=== PATIENT | female | born 1990 | race Caucasian/White ===

== ENCOUNTER 2016-09-20 08:34 | Emergency (ER) | payer MEDICAID ==
[~2016-09-20] VITALS: Ht 162.6 cm; Wt 83.6 kg
[~2016-09-20 08:34] MED LIST: BACTRIM DS 8001 TAB PO; EXCEDRIN 250 MG1 TAB PO; EXCEDRIN TENSION HA; FLEXERIL10 MG PO; NO HOME MEDICATIONS; NORCO 325 MG-51 TAB PO; VITAMINS; [UNRECOGNIZED DRUG - REMARK]
[2016-09-20 08:37] VITALS: BP 129/77; PULSE 93; TEMP 97.8
[2016-09-20] MEDS ORDERED: PRENATAL PO (08:42)
== END 2016-09-20 09:07 | disposition home or self-care (01) ==
LOC: COL.ER 08:34
DX: O99.89 Other specified diseases and conditions complicating pregnancy, childbirth and the puerperium (principal); R07.89 Other chest pain; Z3A.13 13 weeks gestation of pregnancy

== ENCOUNTER 2016-10-14 19:08 | Emergency (ER) | payer MEDICAID ==
[~2016-10-14] VITALS: Ht 162.6 cm; Wt 84.1 kg
[~2016-10-14 19:08] MED LIST changes: +PRENATAL PO
[2016-10-14 19:11] VITALS: TEMP 98.7
[2016-10-14] MEDS ORDERED: UNISOM25 MG PO (19:15)
[2016-10-14] MEDS ORDERED: AMOXICILLIN 50500 MG PO (19:15)
[2016-10-14 20:09] LABS: PH 7 (5-8); URINE APPEARANCE Clear; URINE BACTERIA Moderate /hpf; URINE BILIRUBIN Negative (NEGATIVE); URINE BLOOD Negative (NEGATIVE); URINE COLOR Yellow; URINE GLUCOSE Negative (NEGATIVE); URINE KETONE Negative (NEGATIVE); URINE RBC 0-2 /hpf; URINE UROBILINOGEN Negative (NEGATIVE); URINE WBC 0-2 /hpf
[2016-10-14 21:04] VITALS: BP 126/87; PULSE 89
== END 2016-10-14 21:05 | disposition home or self-care (01) ==
LOC: COL.ER 19:08
PROVIDERS: Nurse Practitioner
DX: O99.511 Diseases of the respiratory system complicating pregnancy, first trimester (principal); Z3A.01 Less than 8 weeks gestation of pregnancy; J06.9 Acute upper respiratory infection, unspecified; O99.89 Other specified diseases and conditions complicating pregnancy, childbirth and the puerperium; R10.2 Pelvic and perineal pain

== ENCOUNTER 2017-03-23 09:53 | Outpatient (CLI) | payer MEDICAID ==
[~2017-03-23] VITALS: Ht 162.6 cm; Wt 95.9 kg
[~2017-03-23 09:53] MED LIST changes: +AMOXICILLIN 50500 MG PO; +UNISOM25 MG PO
[2017-03-23 10:02] VITALS: BP 127/83; PULSE 66; TEMP 98.1
[2017-03-23] MEDS ORDERED: NATURAL IRON65 MG (10:07)
[2017-03-24] MEDS ORDERED: PERCOCET 325 MG1 TA2 PO (03:46)
[2017-03-24] MEDS ORDERED: MOTRIN 800800 MG/TAB PO (03:46)
== END 2017-03-23 11:15 | disposition home or self-care (01) ==
LOC: LDRO 09:53
DX: O42.92 Full-term premature rupture of membranes, unspecified as to length of time between rupture and onset of labor (principal); O62.9 Abnormality of forces of labor, unspecified; Z3A.39 39 weeks gestation of pregnancy

== ENCOUNTER 2017-03-24 01:50 | Inpatient (IN) | payer BC, MEDICAID ==
[2017-03-24] VITALS (53 sets, daily range): BP systolic 100–151; BP diastolic 51–90; PULSE 53–113; TEMP 97.6–99.6
[~2017-03-24] VITALS: Ht 162.6 cm; Wt 95.9 kg
[~2017-03-24 01:50] MED LIST changes: +NATURAL IRON65 MG
[2017-03-24 03:44] LABS: BASO % 0.1 % (0.0-2.0); EOS % 0.1 % (0-4.0); GRAN # 5.7 (1.4-6.5); GRAN % 82.2 % (42.2-75.2); LYMPH # 0.7 (1.2-3.4); LYMPH % 10.3 % (20.0-51.0); MEAN CELL VOLUME 83 fl (80.0-100.0); MEAN CORPUSCULAR HGB CONC 34 g/dl (33.0-37.0); MONO # 0.5 (0.1-0.6); MONO % 6.9 % (1.7-9.3); PLATELET COUNT 170 K/mm3 (130-400); RED BLOOD COUNT 3.95 M/mm3 (4.10-5.30); REDCELL DISTRIBUTION WIDTH-CV 14.7 % (11.5-14.5); WHITE BLOOD COUNT 6.9 K/mm3 (4.8-10.8)
[2017-03-24 03:45] LABS: HEMATOCRIT 32.7 % (37.0-47.0); HEMOGLOBIN 11.1 g/dl (12.5-16.0); MEAN CORPUSCULAR HEMOGLOBIN 28 pg (27.0-31.0)
[2017-03-24] MEDS ORDERED: PERCOCET 325 MG1 TA2 PO (03:46)
[2017-03-24] MEDS ORDERED: MOTRIN 800800 MG/TAB PO (03:46)
[2017-03-25 01:20] VITALS: BP 129/81; PULSE 76; TEMP 97.6
[2017-03-25 08:00] VITALS: BP 136/88; PULSE 97; TEMP 98.1
[2017-03-25 15:49] VITALS: BP 124/78; PULSE 72; TEMP 98.1
[2017-03-25 22:35] VITALS: BP 128/77; PULSE 100; TEMP 97.2
[2017-03-26 07:05] VITALS: BP 116/73; PULSE 100; TEMP 97.6
== END 2017-03-26 20:10 | disposition home or self-care (01) | DRG 775 ==
LOC: LDRO 01:50 → LDR 07:00 → OB 07:00 → LDR 07:00 → OB 18:00
PROVIDERS: Obstetrics & Gynecology
PROC: 10E0XZZ Delivery of Products of Conception, External Approach (ICD-10-PCS; principal; 2017-03-24)
PROC: 0KQM0ZZ Repair Perineum Muscle, Open Approach (ICD-10-PCS; 2017-03-24)
DX: O26.843 Uterine size-date discrepancy, third trimester (principal); O75.89 Other specified complications of labor and delivery; O66.0 Obstructed labor due to shoulder dystocia; O70.1 Second degree perineal laceration during delivery; Z3A.39 39 weeks gestation of pregnancy; Z37.0 Single live birth
CPT/HCPCS: OP; J2210; J2590; J2795; J7120

== ENCOUNTER 2018-05-05 01:42 | Emergency (ER) | payer OTHER ==
[~2018-05-05] VITALS: Ht 162.6 cm; Wt 81.8 kg
[~2018-05-05 01:42] MED LIST changes: +MOTRIN 800800 MG/TAB PO; +PERCOCET 325 MG1 TA2 PO
[2018-05-05 01:46] VITALS: TEMP 97
[2018-05-05 02:13] LABS: BASO % 0.3 % (0.0-2.0); EOS # 0.1 (0.0-0.7); EOS % 1.1 % (0-4.0); GRAN # 6.3 (1.4-6.5); GRAN % 67.3 % (42.2-75.2); HEMATOCRIT 37.8 % (37.0-47.0); HEMOGLOBIN 12.8 g/dl (12.5-16.0); LYMPH # 2.2 (1.2-3.4); LYMPH % 23.4 % (20.0-51.0); MEAN CELL VOLUME 81 fl (80.0-100.0); MEAN CORPUSCULAR HEMOGLOBIN 28 pg (27.0-31.0); MEAN CORPUSCULAR HGB CONC 34 g/dl (33.0-37.0); MEAN PLATELET VOLUME 10.9 fl (7.4-10.4); MONO # 0.7 (0.1-0.6); MONO % 7.6 % (1.7-9.3); PLATELET COUNT 235 K/mm3 (130-400); RED BLOOD COUNT 4.65 M/mm3 (4.10-5.30); REDCELL DISTRIBUTION WIDTH-CV 13.4 % (11.5-14.5)
[2018-05-05 02:34] LABS: C-REACTIVE PROTEIN 0.9 mg/dL (0.0-0.9)
[2018-05-05 02:56] LABS: COLLECTION METHOD CLEAN CATCH
[2018-05-05 03:08] LABS: MUCOUS Present /lpf; PH 5 (5-8); SQUAMOUS EPITHELIAL 0-2 /hpf; URINE APPEARANCE Clear; URINE BACTERIA None Seen /hpf; URINE BILIRUBIN Negative (NEGATIVE); URINE BLOOD Negative (NEGATIVE); URINE COLOR Yellow; URINE GLUCOSE Negative (NEGATIVE); URINE KETONE Negative (NEGATIVE); URINE LEUKOCYTE ESTERASE Negative (NEGATIVE); URINE NITRATE Negative (NEGATIVE); URINE PROTEIN(semi-quant) Negative (NEGATIVE); URINE RBC 0-2 /hpf; URINE UROBILINOGEN Negative (NEGATIVE)
[2018-05-05 03:11] LABS: ALBUMIN 3.8 gm/dL (3.5-5.0); BILIRUBIN,TOTAL 0.2 mg/dL (0.0-1.0); CALCIUM 8.7 mg/dL (8.4-10.2); CREATININE, serum 0.55 mg/dL (0.52-1.25); POTASSIUM 3.5 mmol/L (3.4-5.0); TOTAL PROTEIN 6.8 gm/dL (6.4-8.2)
[2018-05-05 04:30] VITALS: BP 122/80; PULSE 58
== END 2018-05-05 04:30 | disposition home or self-care (01) ==
LOC: COL.ER 01:42
PROVIDERS: Emergency Medicine; Nurse Practitioner
DX: R10.11 Right upper quadrant pain (principal)
CPT/HCPCS: J1170; J1885; J2405; J7030

== ENCOUNTER → 2018-05-06 | Outpatient (CLI) | payer OTHER | LOC: COL.RAD 14:33 | DX: R10.11 Right upper quadrant pain (principal) ==

== ENCOUNTER → 2018-12-18 | Outpatient (CLI) | payer OTHER | LOC: MC.RAD 13:37 | DX: N63.23 Unspecified lump in the left breast, lower outer quadrant (principal); N63.14 Unspecified lump in the right breast, lower inner quadrant ==

== ENCOUNTER → 2021-12-08 | Outpatient (CLI) | payer OTHER | LOC: MC.RAD 11-24 09:15 | DX: N63.20 Unspecified lump in the left breast, unspecified quadrant (principal) ==